=== PATIENT | male | born 1960 | race African-American/Black ===

== ENCOUNTER 2022-01-17 23:46 | Emergency (ER) | payer MEDICAID ==
[~2022-01-17] VITALS: Ht 188 cm; Wt 105.0 kg
[2022-01-18 06:05] VITALS: BP 141/98
== END 2022-01-18 06:06 | disposition home or self-care (01) ==
LOC: ER 01-18 00:02
DX: R55 Syncope and collapse (principal); R94.31 Abnormal electrocardiogram [ECG] [EKG]; E11.9 Type 2 diabetes mellitus without complications
CPT/HCPCS: 93005; 99283